=== PATIENT | male | born 1930 | race Two or more races ===

== ENCOUNTER 2019-02-10 10:34 | Inpatient (IN) | payer OTHER ==
[~2019-02-10] VITALS: Ht 175.3 cm; Wt 56.7 kg
[2019-02-24] MEDS ORDERED: INTEGRA PLUS C1 EACH PO (08:06)
[2019-02-24] MEDS ORDERED: FLUCONAZOLE200 MG PO (08:06)
== END 2019-02-25 16:38 | disposition home or self-care (01) | DRG 871 ==
LOC: ER 10:34 → SEC-K 02-11 09:31 → SURH 02-11 09:31 → SURG 02-15 08:05 → SURH 02-15 08:15
PROVIDERS: ADMIT Internal Medicine
PROC: BW21Y0Z Computerized Tomography (CT Scan) of Abdomen and Pelvis using Other Contrast, Unenhanced and Enhanced (ICD-10-PCS; principal; 2019-02-11)
PROC: 3E0F7GC Introduction of Other Therapeutic Substance into Respiratory Tract, Via Natural or Artificial Opening (ICD-10-PCS; 2019-02-11)
PROC: BB24ZZZ Computerized Tomography (CT Scan) of Bilateral Lungs (ICD-10-PCS; 2019-02-11)
PROC: 0DCP7ZZ Extirpation of Matter from Rectum, Via Natural or Artificial Opening (ICD-10-PCS; 2019-02-12)
PROC: 8E0ZXY6 Isolation (ICD-10-PCS; 2019-02-13)
PROC: 0T9B70Z Drainage of Bladder with Drainage Device, Via Natural or Artificial Opening (ICD-10-PCS; 2019-02-17)
PROC: B246ZZZ Ultrasonography of Right and Left Heart (ICD-10-PCS; 2019-02-20)
DX: A41.9 Sepsis, unspecified organism (principal); J18.1 Lobar pneumonia, unspecified organism; J85.0 Gangrene and necrosis of lung; B37.1 Pulmonary candidiasis; K56.690 Other partial intestinal obstruction; J44.1 Chronic obstructive pulmonary disease with (acute) exacerbation; J44.0 Chronic obstructive pulmonary disease with (acute) lower respiratory infection; J90 Pleural effusion, not elsewhere classified; B45.0 Pulmonary cryptococcosis; I31.3 Pericardial effusion (noninflammatory); I08.2 Rheumatic disorders of both aortic and tricuspid valves; N32.0 Bladder-neck obstruction; A08.8 Other specified intestinal infections; D72.828 Other elevated white blood cell count; J20.9 Acute bronchitis, unspecified; K56.41 Fecal impaction; T18.5XXA Foreign body in anus and rectum, initial encounter; M79.5 Residual foreign body in soft tissue; N13.5 Crossing vessel and stricture of ureter without hydronephrosis

== ENCOUNTER 2019-02-26 16:07 | Emergency (ER) | payer OTHER ==
[~2019-02-26] VITALS: Ht 157.5 cm; Wt 52.2 kg
[~2019-02-26 16:07] MED LIST: FLUCONAZOLE200 MG PO; INTEGRA PLUS C1 EACH PO
== END 2019-02-26 21:48 | disposition home or self-care (01) ==
LOC: ER 16:07
DX: R33.8 Other retention of urine (principal)